=== PATIENT | male | born 1965 | race Caucasian/White ===

== ENCOUNTER 2017-04-25 17:30 | Emergency (ER) | payer OTHER, SELFPAY ==
[~2017-04-25] VITALS: Ht 165.1 cm; Wt 71.2 kg
[2017-04-25] MEDS ORDERED: KETOROLAC 30 MG/1 ML IM ONE (18:00)
[2017-04-25] MEDS ORDERED: KETOROLAC 30 MG/1 ML ONE (18:15)
[2017-04-25 19:11] VITALS: BP 165/113
== END 2017-04-25 19:34 | disposition home or self-care (01) ==
LOC: ED 19:10
DX: S46.912A Strain of unspecified muscle, fascia and tendon at shoulder and upper arm level, left arm, initial encounter (principal); I10 Essential (primary) hypertension; X58.XXXA Exposure to other specified factors, initial encounter; Y93.89 Activity, other specified; Y99.8 Other external cause status; Y92.89 Other specified places as the place of occurrence of the external cause
CPT/HCPCS: 73000; 73030; 96372; 99284; J1885